=== PATIENT | male | born 1980 | race Caucasian/White ===

== ENCOUNTER 2021-08-25 15:10 | Outpatient (CLI) | payer BC, SELFPAY ==
--- NOTE | ~2021-08-25 | XR_ITS ---
EXAM: XR abdomen/kub 1V DATE: 08/25/2021 15:41 HISTORY: RT FLANK PAIN . COMPARISON: CT abdomen and pelvis, same date. FINDINGS: Clear lung bases. Normal bowel gas pattern. No organomegaly. Stable left nephrolithiasis. Known distal right ureteral calcification is not radiographically visible, likely obscured by osseous anatomy. Regional bones and soft tissues normal for age. IMPRESSION: Known obstructing right distal ureteral calcification not radiographically visible. Stabl e right nephrolithiasis. Reviewed, dictated and finalized at location K. IMPRESSION: Known obstructing right distal ureteral calcification not radiograp hically visible. Stable right nephrolithiasis.
--- NOTE | ~2021-08-25 | CT_ITS ---
EXAMINATION: CT abdomen pelvis wo con DATE: 08/25/2021 15:33 INDICATION: RT FLANK PAIN TECHNIQUE: Computed tomography (CT) of the abdomen and pelvis was performed without intravenous contr ast. Automated exposure control and iterative reconstruction technique were employed. The dose-length product was 685.25 mGy-cm. COMPARISON: 10/07/2018. FINDINGS: Lower thorax: Unremarkable Liver: Normal. Biliary/Gallbladder: Gallbladder is normal. No bile duct dilation. Pancreas: No mass or duct dilation. Spleen: Normal. Adrenals:No mass. Kidneys: Moderate right hydronephrosis and perinephric stranding. Nonobstructive left renal calculi. GI tract: No small or large bowel dilation. Normal appendix. Mesentery/Peritoneum: No ascites, mass, or free air. Retroperitoneum: No mass. Pelvis: 3 x 7 mm right distal ureteral calcification. 2 x 4 mm dependent bladder calcification. Soft Tissues: Bilateral fat-containing inguinal hernias, soft tissues otherwise unremarkable. Bones: No acute osseous finding. IMPRESSION: 3 x 7 mm distal right ureteral stone causing moderate obstructive uropathy. 2 x 4 mm bladder calcific ation may represent a recently passed stone. Reviewed, dictated and finalized at location K. IMPRESSION: 3 x 7 mm distal right ureteral stone causing moderate obstructive uropathy. 2 x 4 mm bladder calcification may represent a recently passed stone.
== END 2021-08-25 15:11 | disposition home or self-care (01) ==
PROVIDERS: Visit Provider Nurse Practitioner Family
DX: R10.9 Unspecified abdominal pain (principal); N20.1 Calculus of ureter
CPT/HCPCS: 74018; 74176

== ENCOUNTER 2021-08-27 02:37 | Day surgery (SDC) | payer BC, SELFPAY ==
[2021-08-26 09:27] VITALS: BMI 28.7
--- NOTE | 2021-08-26 09:35 | PC.NURSE ---
Report to the Outpatient Waiting Room, entrance under the green pavilion located off [facility], at time 1000 on date 08/27/21. OR Time: 1200. - You and your visitor will be asked a series of questions to screen for COVID 19 for your protection. - Only one visitor is allowed at this time. - The patient visitor is requested to leave or wait in car when not with patient. - A mask is required within the hospital. Patients may have clear liquids (water, carbonated beverages, clear teas, apple juice) until 3 hours prior to surgery with a maximum of 20 ounces. - No food from midnight until time of surgery Take the following medications with a SIP of water the morning of surgery: ALL RX'D Medications to discontinue per physician: N/A Date to take last dose: N/A Please no make-up, nail faroese, hairspray, perfume, deodorant, or body powder the day of surgery. No jewelry (including any body piercings) or valuables the day of surgery, leave them at home. Please take a shower or bath the night before, or the morning of, surgery with an antibacterial soap. Wear comfortable, loose fitting clothing. - Jewelry must be removed prior to entering the operating room. Rings and piercings that are not removed may be cut off. - The hospital will not accept responsibility for valuables. - Please leave all valuables, including medications, at home the day of surgery. If you are going home after surgery, a licensed tour driver must drive you home. - NO public transportation without another adult. - We recommend that an adult stay with you for 24 hours following discharge. - We also recommend that you do not drive, make important decision, drink alcoholic beverages, or take any drugs that were not prescribed by your health care provider for at least 24 hours after your discharge time. Follow any additional instructions given to you from your surgeon. If you or anyone in your household have experienced Covid symptoms in the past week, please notify your surgeon or the nurse liaison at the phone number below for possible testing. Telephone instructions given to PT - IBRAHIMA HERNÁNDEZ and asked if any additional questions and then verbalized understanding. Patient advised to call surgeon office or pre surgery nurse liaison [phone] if any additional questions.
[2021-08-27] VITALS (7 sets, daily range): BP systolic 93–131; BP diastolic 55–81; PULSE 63–87; RESP 12–20; TEMP 36.3–37.1; O2SAT 99–100
--- NOTE | ~2021-08-27 | XR_ITS ---
EXAMINATION: XR retrograde pyelo w/stent RT DATE: 08/27/2021 12:31 INDICATION: Right internal ureteral stent placement TECHNIQUE: Fluoroscopic images from a right internal ureteral stent placement are submitted for nathaniel hurst 16 seconds of fluoroscopy time. FINDINGS: There is a right double-J internal ureteral stent projecting in expected position, with proximal [place] loop at the level of the renal pelvis and distal loop in the pelvis within the bladder lumen. IMPRESSION: 1. Right internal ureteral stent placement. Please refer to real-time procedural findings for mary lou ls. Reviewed, dictated and finalized at location B. IMPRESSION: 1. Right internal ureteral stent placement. Please refer to real-time procedu ral findings for details.
--- NOTE | ~2021-08-27 | CT_ITS ---
EXAMINATION: CT abdomen pelvis wo con DATE: 08/27/2021 11:15 INDICATION: Right flank pain. Evaluate kidney stones. TECHNIQUE: Computed tomography (CT) of the abdomen and pelvis was performed without intravenous contr ast. The dose-length product was 300.04 mGy-cm. Automated exposure control and iterative reconstructi on technique were employed. COMPARISON: CT dated 08/25/2021 FINDINGS: Heart size normal. No significant pleural or pericardial effusion. The liver, spleen, pancr eas, adrenal glands are unremarkable. Gallbladder is present. There are nonobstructing left renal sto karine. There has been inferior migration of no abnormal pelvic masses or fluid collections. 5 mm distal right ureteral stone with moderate hydroureteronephrosis. There is perinephric and periureteral sumit a. Bladder is decompressed. Nonobstructive bowel gas pattern. Moderate colonic fecal loading. No free air or free fluid. The bladder stones seen on prior examination not seen on current study, likely guerrier ving been passed in the interim. There is osteoarthritis of the hips. IMPRESSION: 1. Inferior migration of distal right ureteral stone with persistent moderate right hydroureteronephr osis. Reviewed, dictated and finalized at location B. IMPRESSION: 1. Inferior migration of distal right ureteral stone with persistent moderate r ight hydroureteronephrosis.
--- NOTE | 2021-08-27 10:05 | ECG_ITS ---
Measurements Intervals [place] Rate: 84 P: 69 MN: 152 QRS: 55 QRSD: 77 T: 51 QT: 367 QTc: 436 Interpretive Statements SINUS RHYTHM NO PREVIOUS ECG AVAILABLE FOR COMPARISON Electronically Signed On 08-27-2021 20:34:48 CDT by Elda Prather M.D.
--- NOTE | 2021-08-27 10:18 | WPDANESEPPF ---
Anes - Initial Pre Proc Eval Procedure: Operation Date: 08/27/21 12:00 Proposed Procedures p Cystoscopy, Right Ureteroscopy, Stone Extraction, Possible Right Stent Placement, Possible Holmium Laser Lithotripsy with Bladder Stone Extraction - Hector Sexton MD Date/Time: 08/27/21 10:18 Surgeon: Hector Sexton MD Pre Op Diagnosis: right ureteral Stone , Bladder Stone Patient Data Age: 41 Gender: M Height: 1.78 m Weight: 90.72 kg Allergies Allergy/AdvReac Type Severity Reaction Status Date / Time Sulfa (Sulfonamide Allergy Unknown HIVES Verified 08/26/21 09:22 Antibiotics) Home Medications Medication Instructions Recorded Confirmed Type bupropion HCl 200 mg tablet,12 hr 200 mg PO BID 08/26/21 08/26/21 History sustained-release ciprofloxacin HCl 500 mg tablet 1 tablet PO BID 08/26/21 08/26/21 History duloxetine 60 mg capsule,delayed 60 mg PO DAILY 08/26/21 08/26/21 History release hydrocodone 5 mg-acetaminophen 325 1 tablet PO Q6H PRN Pain 08/26/21 08/26/21 History mg tablet lamotrigine 200 mg tablet 200 mg PO BID 08/26/21 08/26/21 History lorazepam 0.5 mg tablet 0.5 mg PO TID PRN Anxiety 08/26/21 08/26/21 History propranolol 120 mg capsule,24 120 mg PO DAILY 08/26/21 08/26/21 History hr,extended release quetiapine 50 mg tablet 50 mg PO TID 08/26/21 08/26/21 History tamsulosin 0.4 mg capsule 1 cap PO DAILY 08/26/21 08/26/21 History Patient hx anesthesia problems: none Family hx anesthesia problems: none Results Review: All pre-operative results and documents have been reviewed as part of the pre-operative evaluation. [facility] Past Medical History Medical History (Updated 08/27/21 @ 10:18 by Marino Akers MD) Anxiety Depression HTN (hypertension) KATHLEEN (obstructive sleep apnea) Social History Social History Smoking status: Never smoker Alcohol intake: never Substance use: never Substance use type: does not use Living arrangements: alone Spiritual care concerns: No Anes - Eval Final PreProcedure Day of Procedure 06/09/22 10:18 Patient weight: overweight Heart: regular rate and rhythm Lungs: clear to auscultation and normal air movement Airway: Mallampati scale class II Neurological: alert and oriented Last oral intake: >/= 8 hours ASA classification: II Emergent: no Anesthetic plan: proceed Anesthesia type and monitoring: general LMA Results Review: All pre-operative results and documents have been reviewed as part of the pre-operative evaluation. Informed Consent: The patient's anesthetic plan and its attendant risks and benefits were discussed with the patient/family/POA. Questions were solicited and answers provided to the satisfaction of the patient/family/POA.
[2021-08-27] MEDS: LACTATED RINGERS 1,000 ML 30 ML IV CONT (10:46)
--- NOTE | 2021-08-27 11:39 | WPDHPUPDATE1 ---
History and Physical Update Update Date/Time: 08/27/21 11:39 History and Physical has been reviewed, including an updated exam of the patient. There are NO changes in the patient's condition. Risks, benefits, and alternatives have been discussed and questions answered. Patient agrees to proceed with procedure. Proceed with cystoscopy, right retrograde, right ureteroscopy with stone extraction, laser, stent.
[2021-08-27] MEDS: ceFAZolin 2 GM/D5W 50 ML 2 GM/50 ML BAG IVPB (11:44)
[2021-08-27] MEDS: LIDOCAINE HCL 2% GEL UROJET 10 ML PKG MUCOUS MEM (12:10)
--- NOTE | 2021-08-27 12:40 | W.PM.PROC2 ---
Procedure Note - Detailed Date of Procedure 08/27/21 Pre-op Diagnosis right ureteral Stone Post-op Diagnosis Same Procedure Performed Cystoscopy, right retrograde pyelogram, right ureteroscopy with holmium laser, stone extraction, right ureteral stent placement 4.8 Mongolian contour Surgeon Hector Sexton MD Anesthesia General Description of Procedure Patient is taken to the operative suite correctly identified. Once anesthesia was obtained was placed in dorsal lithotomy position and prepped draped usual sterile fashion. Nineteen Mongolian scope was inserted in the bladder. There were no tumors noted. Right ureteral orifice was cannulated with a guidewire. We dilated with an 8/10 dilator. Rigid ureteral scope was then inserted. There were 2 stones noted. They were too large to retrieve 1 piece. Using a 272 micron fiber we lasered the stone into multiple small little tiny fragments. These were then evacuated into the bladder. Some of these were sent for analysis. Reinspection revealed no residual stone. Pyelogram was then performed confirm placement the stent. A 4.8 Mongolian contour stent was then placed with the proximal end coiled in the renal pelvis and the distal end in the bladder. Bladder was drained. 2% viscous lidocaine was inserted urethra patient taken recovery stable condition. He will follow up in a week's time for stent removal. Estimated Blood Loss 0 Drains Yes Packing No Pathology Yes Complications No immediate complications Condition Stable Disposition PACU
[2021-08-27] MEDS: ONDANSETRON INJ 4 MG/2 ML VIAL IV PUSH (12:57)
== END 2021-08-27 14:09 | disposition home or self-care (01) ==
PROVIDERS: Visit Provider Urology
PROC: (CPT 52352; principal; 2021-08-27 12:00)
DX: N13.2 Hydronephrosis with renal and ureteral calculous obstruction (principal); I10 Essential (primary) hypertension; G47.33 Obstructive sleep apnea (adult) (pediatric); F41.8 Other specified anxiety disorders
CPT/HCPCS: 52356; 74176; 74420; 82365; 88300; 93005; A9270; C1769; C2617; J0690; J1100; J2250; J2405; J2704; J3010; J7120

== ENCOUNTER 2022-09-30 08:45 | Outpatient (CLI) | payer BC, SELFPAY ==
--- NOTE | ~2022-09-30 | CT_ITS ---
CT of the Abdomen and Pelvis: Indication: Left flank pain Technique: 2.5 mm axial scans were obtained through the abdomen and pelvis following intravenous adm inistration of 100 cc of Omnipaque 350. Dose reduction technique was used on this scan by utilizing a utomated exposure control and iterative reconstruction technique. The dose-length product (DLP) was 6 61.75 mGy-cm. COMPARISON: 08/27/2021 Findings: Scans through the lung bases are unremarkable. The liver, spleen, pancreas, gallbladder, adrenals and right kidney are within normal limits. There i s a 1.0 x 0.8 cm left renal stone. Additional 2 mm nonobstructing left lower pole renal stone present . No evidence of aortic aneurysm. No lymphadenopathy. No bowel obstruction or bowel wall thickening. There is no evidence to suggest acute appendicitis. Images through the pelvis were performed. Urinary bladder unremarkable. Prostate gland and seminal ve sicles are unremarkable. Impression: Left nephrolithiasis, as detailed above. Reviewed, dictated and finalized at location . Impression: Left nephrolithiasis, as detailed above.
--- NOTE | ~2022-09-30 | XR_ITS ---
EXAMINATION: XR abdomen/kub 1V INDICATION: Left flank pain TECHNIQUE: Supine views of the abdomen were obtained on 2 radiographs. COMPARISON: 08/25/2021 FINDINGS: No definite urolithiasis is identified. There are phleboliths of the pelvis. The visualized lung bases are clear. The bowel gas pattern is normal. IMPRESSION: 1. No definite urolithiasis identified. Reviewed, dictated and finalized at location L.
[2022-09-30 11:17] LABS: Estimated Glomerular Filt Rate 52
== END 2022-09-30 08:46 | disposition home or self-care (01) ==
PROVIDERS: Visit Provider Urology
DX: N20.0 Calculus of kidney (principal)
CPT/HCPCS: 74018; 74177; Q9967

== ENCOUNTER 2022-10-05 14:07 | Outpatient (CLI) | payer BC, SELFPAY ==
--- NOTE | ~2022-10-05 | XR_ITS ---
EXAMINATION: XR abdomen/kub 1V DATE: 10/05/2022 14:28 INDICATION: Left kidney stone. TECHNIQUE: A supine view of the abdomen on 2 radiographs was obtained. COMPARISON: CT abdomen and pelvis 09/30/2022 FINDINGS: There are no dilated loops of bowel. There is a 9 x 15 mm stone in left kidney. There is a 2 mm stone in left kidney. There are phleboliths in right pelvis. IMPRESSION: 1. Left kidney stones. Reviewed, dictated and finalized at location A. IMPRESSION: 1. Left kidney stones.
== END 2022-10-05 14:08 | disposition home or self-care (01) ==
LOC: ANHIMG 14:16
PROVIDERS: Visit Provider Urology
DX: N20.0 Calculus of kidney (principal)
CPT/HCPCS: 74018

== ENCOUNTER 2022-10-29 01:56 | Day surgery (SDC) | payer BC, SELFPAY ==
[2022-10-26 17:01] VITALS: BMI 29.9
--- NOTE | 2022-10-26 17:10 | PC.NURSE ---
Report to the Outpatient Waiting Room, entrance under the green pavilion located off [facility], at time 0630 on date 10/29/22. Planned Procedure Time: 0830. Time changes happen often and if your time is changed the preop area will call you the afternoon before. - You and your visitor will be asked to self-screen and do not enter if you have any COVID symptoms. - A mask is optional within the hospital at this time. Patients may have clear liquids (water, carbonated beverages, clear teas, apple juice) until 3 hours prior to surgery with a maximum of 20 ounces. 0530 - No food from midnight until time of surgery - Infants may have breast milk until 4 hours before surgery, formula 6 hours prior to surgery. - Children will be allowed to drink immediately following surgery. If applicable, please bring a bottle or sippy cup to assist with drinking. Juice, water, soda, and popsicles are readily available. For infants on formula, please bring formula the day of surgery. Pacifiers are allowed. Take the following medications with a SIP of water the morning of surgery: bupropion, duloxetine, lamotrigine, lorazepam, propranolol, quetiapine DO NOT STOP ANY OF YOUR OTHER PRESCRIPTION MEDICATIONS PRIOR TO SURGERY ?EXCEPT THE FOLLOWING Medications to discontinue per physician N/A Date to take last dose N/A Please no make-up, nail russian, hairspray, perfume, deodorant, or body powder the day of surgery. No jewelry (including any body piercings) or valuables the day of surgery, leave them at home. Please take a shower or bath the night before, or the morning of, surgery with an antibacterial soap. Wear comfortable, loose fitting clothing. Children are encouraged to wear pajamas. - Jewelry must be removed prior to entering the operating room. Rings and piercings that are not removed may be cut off. - The hospital will not accept responsibility for valuables. - Please leave all valuables, including medications, at home the day of surgery. If you are going home after surgery, a licensed auto crane driver must drive you home. - NO public transportation without another adult if you receive anesthesia. - We recommend that an adult stay with you for 24 hours following discharge. - We also recommend that you do not drive, make important decision, drink alcoholic beverages, or take any drugs that were not prescribed by your health care provider for at least 24 hours after your discharge time. For Pediatric surgeries, we recommend two adults accompany the child home. Follow any additional instructions given to you from your surgeon. If you or anyone in your household have experienced Covid symptoms in the past week, please notify your surgeon or the nurse liaison at the phone number below for possible testing. Telephone instructions given to Patient- Dat Pichardo and asked if any additional questions and then verbalized understanding. Patient advised to call surgeon office or pre surgery nurse liaison [phone] if any additional questions.
[2022-10-29] VITALS (13 sets, daily range): BP systolic 115–167; BP diastolic 59–95; PULSE 72–124; RESP 12–18; TEMP 36.1–36.6; O2SAT 97–100; BMI 29.0
--- NOTE | ~2022-10-29 | XR_ITS ---
Supine and upright views of the abdomen Clinical history: Lithotripsy COMPARISON: 10/05/2022 Findings: Bowel gas pattern is nonspecific. No evidence for obstruction or free air. Amorphous left r enal stone measures approximately 16 mm in maximum diameter. Osseous structures are intact. Impression: 16 mm left renal stone, as detailed above. Reviewed, dictated and finalized at location . Impression: 16 mm left renal stone, as detailed above.
--- NOTE | 2022-10-29 06:00 | ECG_ITS ---
Measurements Intervals [place] Rate: 86 P: 53 [place]: 145 QRS: 20 QRSD: 90 T: 37 QT: 372 QTc: 447 Interpretive Statements SINUS RHYTHM POSSIBLE LEFT ATRIAL ENLARGEMENT [-0.1mV P WAVE IN V1/V2] COMPARED TO ECG 08/27/2021 10:20:23 NO SIGNIFICANT CHANGES Electronically Signed On 10-29-2022 9:01:17 CDT by Daphne Handley M.D.
[2022-10-29] MEDS: LACTATED RINGERS 1,000 ML 30 ML IV CONT (07:15)
[2022-10-29 07:33] LABS: Prothrombin Time 13.6 Seconds (11.1-14.7)
[2022-10-29 07:34] LABS: Partial Thromboplastin Time 29.1 SECONDS (22.3-36.8)
--- NOTE | 2022-10-29 07:39 | WPDHPUPDATE1 ---
History and Physical Update Update Date/Time: 10/29/22 07:39 History and Physical has been reviewed, including an updated exam of the patient. There are NO changes in the patient's condition. Risks, benefits, and alternatives have been discussed and questions answered. Patient agrees to proceed with procedure. Proceed with cystoscopy, left retrograde, left stent placement, left renal eswl
[2022-10-29] MEDS: SCOPOLAMINE 1.5 MG PATCH TRANSDERM (07:40)
--- NOTE | 2022-10-29 07:41 | P.PNAN_ITS ---
Anes - Initial Pre Proc Eval Procedure: Operation Date: 10/29/22 08:30 Proposed Procedures p Cystoscopy, Left Retrograde Pyelogram, Possible Left Stent Placement, - Hector Sexton MD s Left Renal Extracorporeal Shock Wave Lithotripsy - Hector Sexton MD Date/Time: 10/29/22 07:41 Surgeon: Hector Sexton MD Pre Op Diagnosis: left renal kidney stone Patient Data Age: 42 Gender: M Height: 1.78 m Weight: 92 kg Allergies Allergy/AdvReac Type Severity Reaction Status Date / Time Sulfa (Sulfonamide Allergy Unknown HIVES Verified 10/29/22 07:20 Antibiotics) Home Medications Medication Instructions Recorded Confirmed Type bupropion HCl 200 mg tablet,12 hr 200 mg PO BID 08/26/21 10/26/22 History sustained-release duloxetine 60 mg capsule,delayed 60 mg PO DAILY 08/26/21 10/26/22 History release lamotrigine 200 mg tablet 200 mg PO BID 08/26/21 10/26/22 History lorazepam 0.5 mg tablet 0.5 mg PO TID PRN Anxiety 08/26/21 10/29/22 History propranolol 120 mg capsule,24 120 mg PO DAILY 08/26/21 10/26/22 History hr,extended release quetiapine 50 mg tablet 150 mg PO HS 08/26/21 10/26/22 History Laboratory Tests 10/29/22 07:05 PT 13.6 Seconds (11.1-14.7) INR 1.0 APTT 29.1 SECONDS (22.3-36.8) Patient hx anesthesia problems: none Family hx anesthesia problems: none Results Review: All pre-operative results and documents have been reviewed as part of the pre- operative evaluation. [facility] Past Medical History Medical History Anxiety Depression HTN (hypertension) KATHLEEN (obstructive sleep apnea) Social History Social History Smoking status: Never smoker Alcohol intake: never Substance use: never Substance use type: does not use Living arrangements: alone Spiritual care concerns: No Anes - Eval Final PreProcedure Day of Procedure 10/29/22 07:41 Patient weight: overweight Heart: regular rate and rhythm Lungs: clear to auscultation Airway: Mallampati scale class II Neurological: alert and oriented Last oral intake: >/= 8 hours ASA classification: III Emergent: no Anesthetic plan: proceed Anesthesia type and monitoring: general LMA and standard monitoring Results Review: All pre-operative results and documents have been reviewed as part of the pre- operative evaluation. Informed Consent: The patient's anesthetic plan and its attendant risks and benefits were discussed with the patient/family/POA. Questions were solicited and answers provided to the satisfaction of the patient/family/POA.
[2022-10-29 08:20] LABS: Appearance Urine Clear (Clear); Bacteria Urine None Seen /hpf; Bilirubin Urine Negative (Negative); Blood Urine 2+ (Negative); Color Urine Yellow (Yellow); Glucose Urine UA Negative (Negative); Ketones Urine Trace mg/dL (Negative); Leukocyte Esterase Ur Trace LEU/UL (Negative); Nitrate Urine Negative (Negative); Non Pathogenic Casts 0-2; Protein Urine 2+ mg/dL (Negative); RBC Urine 51-100 /hpf (0-2); Specific Grav Ur 1.021 (1.001-1.035); Squamous Epithelial Cell Urine None seen /hpf (Few); WBC Urine 0-5 /hpf; pH Urine 6.5 (5.0-9.0)
[2022-10-29 08:29] LABS: Add Urine Microscopic? YES
[2022-10-29] MEDS: ceFAZolin 2 GM/D5W 50 ML 2 GM/50 ML BAG IVPB (08:30)
[2022-10-29] MEDS: LIDOCAINE HCL 2% GEL UROJET 10 ML PKG MUCOUS MEM (08:46)
--- NOTE | 2022-10-29 09:16 | W.PM.PROC2 ---
Procedure Note - Detailed Date of Procedure 10/29/22 Pre-op Diagnosis left renal kidney stone Post-op Diagnosis Same Procedure Performed Cystoscopy, left ureteral stent placement 4.8 Tunisian contour stent, lithotripsy of left renal calculus Surgeon Hector Sexton MD Anesthesia General Description of Procedure Patient is taken to the operative suite and correctly identified. Once anesthesia was obtained he was prepped and draped usual sterile fashion. A 16 Tunisian flexible scope was inserted in the meatus. There are no urethral strictures. Prostate is nonobstructive. The bladder itself has no tumors. Left ureteral orifice was cannulated with a guidewire. Report 0.8 Tunisian contour stent was then placed with the proximal end in the renal pelvis distal in the bladder. 2% viscous lidocaine was inserted into the urethra. Patient was then repositioned. The left renal stone was visualized. Two thousand five hundred shocks were given to the stone. Patient tolerated procedure well without any complications and was taken recovery stable condition. A follow-up in 7-10 days with a KUB. This completes dictation. Please send a copy of this op note to my office Estimated Blood Loss 0 Drains Yes Packing No Pathology None sent Complications No immediate complications Condition Stable Disposition PACU
[2022-10-29] MEDS: ONDANSETRON INJ 4 MG/2 ML VIAL IV PUSH (10:10)
[2022-10-29] MEDS: LABETALOL HCL INJ 100 MG/20 ML VIAL IV PUSH (10:22)
--- NOTE | 2022-10-29 11:59 | SUR.PHASEII ---
PATIENT URINATED INTO SIEVE AND NOTICED A TINY CLEAR-WHITE TUBE WITH A TINY PIECE OF MUCOUS/TISSUE ATTACHED TO ONE END OF IT IN THE SIEVE. TUBE PLACED IN A STERILE CUP. DR. AGUSTIN AWARE AND WILL LOOK AT IT AND OKAY'D FOR PATIENT TO GO HOME.
--- NOTE | 2022-10-29 12:30 | SUR.PHASEII ---
DR. AGUSTIN LOOKED AT THE TINY TUBE; HE SAID IT'S NOT THE STENT AND TO TELL THE PATIENT NOT TO WORRY ABOUT IT. I CALLED THE PATIENT TO RELAY THIS MESSAGE.
== END 2022-10-29 12:10 | disposition home or self-care (01) ==
PROVIDERS: Visit Provider Urology
PROC: (CPT 52352; principal; 2022-10-29 08:30)
PROC: (CPT 50590; 2022-10-29 08:30)
DX: N20.0 Calculus of kidney (principal); I10 Essential (primary) hypertension; G47.33 Obstructive sleep apnea (adult) (pediatric); F41.9 Anxiety disorder, unspecified; F32.A Depression, unspecified
CPT/HCPCS: 52332; 50590; 36415; 74018; 81001; 85610; 85730; 87086; 93005; A9270; C1769; C2617; J0690; J1100; J2250; J2405; J2704; J3010; J7120

== ENCOUNTER 2022-11-11 11:49 | Outpatient (CLI) | payer BC, SELFPAY ==
--- NOTE | ~2022-11-11 | XR_ITS ---
XR abdomen/kub 1V 11/11/2022 12:02 Indication: Renal stone Procedure: KUB Comparison: 10/29/2022 Findings: There are left renal stones. There is left internal ureteral stent in expected position. Gustavo wel gas pattern nonobstructive. No acute osseous abnormality. Impression: 1: Left nephrolithiasis. Reviewed, dictated and finalized at location L. Impression: 1: Left nephrolithiasis.
== END 2022-11-11 11:50 | disposition home or self-care (01) ==
LOC: ANHIMG 11:52
PROVIDERS: Visit Provider Urology
DX: N20.0 Calculus of kidney (principal)
CPT/HCPCS: 74018

== ENCOUNTER 2022-11-23 17:15 | Outpatient (CLI) | payer BC, SELFPAY ==
--- NOTE | ~2022-11-23 | XR_ITS ---
EXAM: XR abdomen/kub 1V DATE: 11/23/2022 17:26 HISTORY: left sided kidney stone . COMPARISON: 11/11/2022. FINDINGS: Clear lung bases. Left ureteral stent, in good position. Normal bowel gas pattern. No orga nomegaly. Left inferior pole renal calcifications, unchanged. Regional bones and soft tissues normal for age. IMPRESSION: Stable left nephrolithiasis. Reviewed, dictated and finalized at location K.
== END 2022-11-23 17:16 | disposition home or self-care (01) ==
LOC: ANHIMG 17:17
PROVIDERS: Visit Provider Urology
DX: N20.0 Calculus of kidney (principal)
CPT/HCPCS: 74018

== ENCOUNTER 2022-12-14 17:11 | Outpatient (CLI) | payer BC, SELFPAY ==
[2022-12-14 18:11] LABS: Prothrombin Time 13.2 Seconds (11.1-14.7)
[2022-12-14 18:12] LABS: Partial Thromboplastin Time 31.4 SECONDS (22.3-36.8)
== END 2022-12-14 17:12 | disposition home or self-care (01) ==
LOC: ANHLAB 17:12
PROVIDERS: Visit Provider Urology
DX: Z01.818 Encounter for other preprocedural examination (principal); N20.0 Calculus of kidney
CPT/HCPCS: 36415; 85610; 85730; 87086

== ENCOUNTER 2022-12-17 00:49 | Day surgery (SDC) | payer BC, SELFPAY ==
[2022-12-08 14:06] VITALS: BMI 28.4
--- NOTE | 2022-12-08 14:11 | PC.NURSE ---
Report to the Outpatient Waiting Room, entrance under the green pavilion located off [facility], at time _0730 on date 12/17/22. Planned Procedure Time: _929__. Time changes happen often and if your time is changed the preop area will call you the afternoon before. - You and your visitor will be asked to self-screen and do not enter if you have any COVID symptoms. - A mask is optional within the hospital at this time. Patients may have clear liquids (water, carbonated beverages, clear teas, apple juice) until 3 hours prior to surgery with a maximum of 20 ounces. - No food from midnight until time of surgery - Infants may have breast milk until 4 hours before surgery, formula 6 hours prior to surgery. - Children will be allowed to drink immediately following surgery. If applicable, please bring a bottle or sippy cup to assist with drinking. Juice, water, soda, and popsicles are readily available. For infants on formula, please bring formula the day of surgery. Pacifiers are allowed. Take the following medications with a SIP of water the morning of surgery: _BUPROPION, DULOXETINE, LAMOTRIGINE, PROPANOLOL, LORAZEPAM IF NEEDED DO NOT STOP ANY OF YOUR OTHER PRESCRIPTION MEDICATIONS PRIOR TO SURGERY ?EXCEPT THE FOLLOWING Medications to discontinue per physician Date to take last dose Please no make-up, nail colombian, hairspray, perfume, deodorant, or body powder the day of surgery. No jewelry (including any body piercings) or valuables the day of surgery, leave them at home. Please take a shower or bath the night before, or the morning of, surgery with an antibacterial soap. Wear comfortable, loose fitting clothing. Children are encouraged to wear pajamas. - Jewelry must be removed prior to entering the operating room. Rings and piercings that are not removed may be cut off. - The hospital will not accept responsibility for valuables. - Please leave all valuables, including medications, at home the day of surgery. If you are going home after surgery, a licensed catshovel driver must drive you home. - NO public transportation without another adult if you receive anesthesia. - We recommend that an adult stay with you for 24 hours following discharge. - We also recommend that you do not drive, make important decision, drink alcoholic beverages, or take any drugs that were not prescribed by your health care provider for at least 24 hours after your discharge time. For Pediatric surgeries, we recommend two adults accompany the child home. Follow any additional instructions given to you from your surgeon. If you or anyone in your household have experienced Covid symptoms in the past week, please notify your surgeon or the nurse liaison at the phone number below for possible testing. Telephone instructions given to _PATIENT___and asked if any additional questions and then verbalized understanding. Patient advised to call surgeon office or pre surgery nurse liaison [phone] if any additional questions.
[2022-12-17] VITALS (10 sets, daily range): BP systolic 121–142; BP diastolic 74–103; PULSE 64–88; RESP 14–20; TEMP 36.6–36.8; O2SAT 98–100; BMI 29.5
--- NOTE | ~2022-12-17 | XR_ITS ---
EXAMINATION: XR abdomen/kub 1V DATE: 12/17/2022 08:06 INDICATION: Kidney stone. TECHNIQUE: A supine view of the abdomen on 2 radiographs was obtained. COMPARISON: Abdomen radiographs 11/23/2022, CT abdomen and pelvis 09/30/2022 FINDINGS: There are no dilated loops of bowel. There are phleboliths in the pelvis. There is a left i nternal ureteral stent in expected position. There are 2 mm and 3 mm stones in proximal left ureter. IMPRESSION: 1. 2 mm and 3 mm stones in proximal left ureter with left internal ureteral stent in expected positio n. Reviewed, dictated and finalized at location E. IMPRESSION: 1. 2 mm and 3 mm stones in proximal left ureter with left internal ureteral yue nt in expected position.
--- NOTE | 2022-12-17 08:47 | P.PNAN_ITS ---
Anes - Initial Pre Proc Eval Procedure: Operation Date: 12/17/22 09:30 Proposed Procedures p Left Renal Extracorporeal Shock Wave Lithotripsy - Hector Sexton MD Date/Time: 12/17/22 08:47 Surgeon: Hector Sexton MD Pre Op Diagnosis: left renal stone Patient Data Age: 42 Gender: M Height: 1.78 m Weight: 90 kg Allergies Allergy/AdvReac Type Severity Reaction Status Date / Time Sulfa (Sulfonamide Allergy Unknown HIVES Verified 10/29/22 07:20 Antibiotics) Home Medications Medication Instructions Recorded Confirmed Type bupropion HCl 200 mg tablet,12 hr 200 mg PO BID 08/26/21 12/08/22 History sustained-release duloxetine 60 mg capsule,delayed 60 mg PO DAILY 08/26/21 12/08/22 History release lamotrigine 200 mg tablet 200 mg PO BID 08/26/21 12/08/22 History lorazepam 0.5 mg tablet 0.5 mg PO TID PRN Anxiety 08/26/21 12/08/22 History propranolol 120 mg capsule,24 120 mg PO DAILY 08/26/21 12/08/22 History hr,extended release quetiapine 50 mg tablet 150 mg PO HS 08/26/21 12/08/22 History Patient hx anesthesia problems: none Family hx anesthesia problems: none Results Review: All pre-operative results and documents have been reviewed as part of the pre- operative evaluation. [facility] Past Medical History Medical History Anxiety Depression HTN (hypertension) KATHLEEN (obstructive sleep apnea) Social History Social History Smoking status: Never smoker Alcohol intake: never Substance use: never Substance use type: does not use Living arrangements: alone Spiritual care concerns: No Anes - Eval Final PreProcedure Day of Procedure 12/17/22 08:47 Patient weight: overweight Heart: regular rate and rhythm Lungs: clear to auscultation Airway: Mallampati scale class II Neurological: alert and oriented Last oral intake: >/= 8 hours ASA classification: III Emergent: no Anesthetic plan: proceed Anesthesia type and monitoring: general LMA and standard monitoring Results Review: All pre-operative results and documents have been reviewed as part of the pre- operative evaluation. Informed Consent: The patient's anesthetic plan and its attendant risks and benefits were discussed with the patient/family/POA. Questions were solicited and answers provided to the satisfaction of the patient/family/POA.
[2022-12-17] MEDS: LACTATED RINGERS 1,000 ML 30 ML IV CONT (09:00)
--- NOTE | 2022-12-17 09:18 | WPDHPUPDATE1 ---
History and Physical Update Update Date/Time: 12/17/22 09:18 History and Physical has been reviewed, including an updated exam of the patient. There are NO changes in the patient's condition. Risks, benefits, and alternatives have been discussed and questions answered. Patient agrees to proceed with procedure. Proceed with left renal/ureteral lithotripsy
[2022-12-17] MEDS: ceFAZolin 2 GM/D5W 50 ML 2 GM/50 ML BAG IVPB (09:32)
--- NOTE | 2022-12-17 10:12 | W.PM.PROC2 ---
Procedure Note - Detailed Date of Procedure 12/17/22 Pre-op Diagnosis left ureteral stone Post-op Diagnosis Same Procedure Performed Lithotripsy of left ureteral calculus Surgeon Hector Sexton MD Anesthesia General Description of Procedure Patient was taken to the operative suite correctly identified. Once anesthesia was obtained the stones were localized in both planes. He had a bit of a Steinstrasse in the proximal ureter. Three thousand shocks were given to this location. Patient tolerated procedure well without any complications and was taken recovery stable condition. He will follow-up in 7-10 days with KUB with possible removal of the stent at that time. This completes dictation on this patient. Please send a copy of this note to my office Estimated Blood Loss 0 Drains Yes Packing No Pathology None sent Complications No immediate complications Condition Stable Disposition PACU
[2022-12-17] MEDS: ONDANSETRON INJ 4 MG/2 ML VIAL IV PUSH (10:40)
== END 2022-12-17 12:05 | disposition home or self-care (01) ==
PROVIDERS: Visit Provider Urology
PROC: (CPT 50590; principal; 2022-12-17 09:30)
DX: N20.1 Calculus of ureter (principal); F41.9 Anxiety disorder, unspecified; F32.A Depression, unspecified; I10 Essential (primary) hypertension; G47.33 Obstructive sleep apnea (adult) (pediatric); Z87.442 Personal history of urinary calculi; Z96.0 Presence of urogenital implants
CPT/HCPCS: 50590; 74018; J0690; J1100; J2250; J2405; J2704; J3010; J7120

== ENCOUNTER 2022-12-28 17:17 | Outpatient (CLI) | payer BC, SELFPAY ==
--- NOTE | ~2022-12-28 | XR_ITS ---
EXAMINATION: XR abdomen/kub 1V INDICATION: Calcium kidney stone TECHNIQUE: Supine views of the abdomen were obtained on 2 radiographs. COMPARISON: 12/17/2022 FINDINGS: A left internal ureteral stent is in expected position. There is a 5 mm stone adjacent to t he stent at the level of the left L4 transverse process. No definite additional urolithiasis is ident ified. The visualized lung bases are clear. A moderate volume of colonic stool is present. IMPRESSION: 1. Left internal ureteral stent in expected position with small stone adjacent to the stent at the le stephon of the left L4 transverse process. Reviewed, dictated and finalized at location F. IMPRESSION: 1. Left internal ureteral stent in expected position with small stone adjacent to the stent at the level of the left L4 transverse process.
== END 2022-12-28 17:18 | disposition home or self-care (01) ==
PROVIDERS: Visit Provider Urology
DX: N20.0 Calculus of kidney (principal); Z96.0 Presence of urogenital implants
CPT/HCPCS: 74018

== ENCOUNTER 2023-01-03 12:54 | Outpatient (CLI) | payer BC, SELFPAY ==
--- NOTE | ~2023-01-03 | CT_ITS ---
EXAMINATION: CT abdomen pelvis wo con DATE: 01/03/2023 13:20 INDICATION: Calcium kidney stone. TECHNIQUE: Computed tomography (CT) of the abdomen and pelvis was performed without intravenous contr ast. Automated exposure control and iterative reconstruction technique were employed. The dose-length product was 620.61 mGy-cm. COMPARISON: CT abdomen and pelvis 09/30/2022 FINDINGS: The visualized portions of the lung bases demonstrate minimal atelectasis. No pleural effus ion. The heart size is normal. No pericardial effusion. There is diffuse hepatic steatosis. The gallb ladder, spleen, pancreas, adrenal glands, and right kidney are normal. There is a left internal urete ral stent in expected position. There is a 4 mm stone in left kidney. There is mild left hydronephros is. There is a 2 mm stone in proximal left ureter. There are no dilated loops of bowel. The appendix is normal. There are no pathologically enlarged lymph nodes. There is no free intraperitoneal fluid. There is mild lumbar spondylosis. IMPRESSION: 1. 2 mm stone in proximal left ureter. Left internal ureteral stent in expected position. Mild left h ydronephrosis. 2. 4 mm nonobstructing left kidney stone. Reviewed, dictated and finalized at location E. IMPRESSION: 1. 2 mm stone in proximal left ureter. Left internal ureteral stent in expected position. Mild left hydronephrosis. 2. 4 mm nonobstructing left kidney stone.
--- NOTE | ~2023-01-03 | XR_ITS ---
XR abdomen/kub 1V DATE: 01/03/2023 13:20 INDICATION: Calcium kidney stone TECHNIQUE: 2 AP views COMPARISON: 01/03/2023 CT abdomen pelvis FINDINGS: Left internal urinary stent, proximal pigtail overlying left renal pelvis, distal pigtail o verlying the latter in the midline. Small faint linear opacity overlying the lower pole left kidney likely corresponds to the small nonob structing calculus of the lower pole left kidney documented on 2022 CT abdomen pelvis. One or 2 very small subtle faintly calcified calculi are suggested overlying the left ureter at the L 3-4 level. IMPRESSION: 1 or 2 very small subtle faintly calcified calculi may be present in the left ureter at t he L3-4 level Small very faintly calcified lower pole left renal calculus Left internal urinary stent Reviewed, dictated and finalized at Location A. Reviewed, dictated and finalized at location B. IMPRESSION: 1 or 2 very small subtle faintly calcified calculi may be present i n the left ureter at the L3-4 level Small very faintly calcified lower pole left renal calculus Left internal urinary stent
== END 2023-01-03 12:55 ==
LOC: MICIMG 12:56
PROVIDERS: PCP Urology; Visit Provider Urology
DX: N20.0 Calculus of kidney (principal); N20.1 Calculus of ureter; N13.30 Unspecified hydronephrosis; Z96.0 Presence of urogenital implants
CPT/HCPCS: 74018; 74176

== ENCOUNTER 2023-01-03 15:02 | Outpatient (CLI) | payer BC, SELFPAY | END 2023-01-03 15:03 | disposition home or self-care (01) | PROVIDERS: PCP Urology; Visit Provider Urology | DX: Z01.818 Encounter for other preprocedural examination (principal); N20.0 Calculus of kidney | CPT/HCPCS: 87086 ==

== ENCOUNTER 2023-01-07 00:27 | Day surgery (SDC) | payer BC, SELFPAY ==
[2023-01-03 10:31] VITALS: BMI 28.7
--- NOTE | 2023-01-03 10:49 | SUR.PREOP ---
Report to the Outpatient Waiting Room, entrance under the green pavilion located off [facility], at time 6:00AM on date 01/07/2023. Planned Procedure Time: 7:30AM. Time changes happen often and if your time is changed the preop area will call you the afternoon before. - You and your visitor will be asked to self-screen and do not enter if you have any COVID symptoms. - A mask is optional within the hospital at this time. Patients may have clear liquids (water, carbonated beverages, clear teas, apple juice) until 3 hours prior to surgery with a maximum of 20 ounces- 4:30AM. - No food from midnight until time of surgery - Infants may have breast milk until 4 hours before surgery, infant formula 6 hours prior to surgery. - Children will be allowed to drink immediately following surgery. If applicable, please bring a bottle or sippy cup to assist with drinking. Juice, water, soda, and popsicles are readily available. For infants on formula, please bring formula the day of surgery. Pacifiers are allowed. Take the following medications with a SIP of water the morning of surgery: Propranolol, Ativan as needed, Wellbutrin, Cymbalta, Lamictal DO NOT STOP ANY OF YOUR OTHER PRESCRIPTION MEDICATIONS PRIOR TO SURGERY ?EXCEPT THE FOLLOWING Medications to discontinue per physician Multivitamin- 3 days per anesthesia Date to take last dose: 01/03/2023 Please no make-up, nail french, hairspray, perfume, deodorant, or body powder the day of surgery. No jewelry (including any body piercings) or valuables the day of surgery, leave them at home. Please take a shower or bath the night before, or the morning of, surgery with an antibacterial soap. Wear comfortable, loose fitting clothing. Children are encouraged to wear pajamas. - Jewelry must be removed prior to entering the operating room. Rings and piercings that are not removed may be cut off. - The hospital will not accept responsibility for valuables. - Please leave all valuables, including medications, at home the day of surgery. If you are going home after surgery, a licensed jinrikisha driver must drive you home. - NO public transportation without another adult if you receive anesthesia. - We recommend that an adult stay with you for 24 hours following discharge. - We also recommend that you do not drive, make important decision, drink alcoholic beverages, or take any drugs that were not prescribed by your health care provider for at least 24 hours after your discharge time. For Pediatric surgeries, we recommend two adults accompany the child home. Follow any additional instructions given to you from your surgeon. If you or anyone in your household have experienced Covid symptoms in the past week, please notify your surgeon or the nurse liaison at the phone number below for possible testing. Telephone instructions given to patient- Dat and asked if any additional questions and then verbalized understanding. Patient advised to call surgeon office or pre surgery nurse liaison [phone] if any additional questions.
[2023-01-07] VITALS (10 sets, daily range): BP systolic 117–145; BP diastolic 73–88; PULSE 60–84; RESP 10–16; TEMP 36.2–36.3; O2SAT 99–100
--- NOTE | ~2023-01-07 | XR_ITS ---
EXAMINATION: XR retrograde pyelo w/stent LT DATE: 01/07/2023 09:07 INDICATION: Left internal ureteral stent placement TECHNIQUE: Fluoroscopic images from a left internal ureteral stent placement are submitted for review . 39 seconds of fluoroscopy time. FINDINGS: There is a left double-J internal ureteral stent projecting in expected position, with proximal Drayton loop at the level of the renal pelvis and distal loop in the pelvis within the bladder lumen. IMPRESSION: 1. Left internal ureteral stent placement. Please refer to real-time procedural findings for detail s. Reviewed, dictated and finalized at location A. IMPRESSION: 1. Left internal ureteral stent placement. Please refer to real-time procedur al findings for details.
--- NOTE | 2023-01-07 07:48 | WPDANESEPPF ---
Anes - Initial Pre Proc Eval Procedure: Operation Date: 01/07/23 08:30 Proposed Procedures p Cystosopy, Left Ureteroscopy, Left Retrograde Pyelogram, Possible Left Stone Extraction, Left Stent Exchange, Possible Holmium Laser - Hector Sexton MD Date/Time: 01/07/23 07:48 Surgeon: Hector Sexton MD Pre Op Diagnosis: renal stone Patient Data Age: 42 Gender: M Height: 1.78 m Weight: 90.9 kg Allergies Allergy/AdvReac Type Severity Reaction Status Date / Time Sulfa (Sulfonamide Allergy Unknown HIVES Verified 01/03/23 10:26 Antibiotics) Home Medications Medication Instructions Recorded Confirmed Type bupropion HCl 200 mg tablet,12 hr 200 mg PO BID 08/26/21 01/03/23 History sustained-release duloxetine 60 mg capsule,delayed 60 mg PO DAILY 08/26/21 01/03/23 History release lamotrigine 200 mg tablet 200 mg PO BID 08/26/21 01/03/23 History lorazepam 0.5 mg tablet 0.5 mg PO TID PRN Anxiety 08/26/21 01/03/23 History propranolol 120 mg capsule,24 120 mg PO DAILY 08/26/21 01/03/23 History hr,extended release quetiapine 50 mg tablet 150 mg PO HS 08/26/21 01/03/23 History Adult One Daily Multivitamin See Rx Instructions .Route .COMPLEX 01/03/23 01/03/23 History Patient hx anesthesia problems: none Family hx anesthesia problems: none Results Review: All pre-operative results and documents have been reviewed as part of the pre-operative evaluation. [facility] Past Medical History Medical History Anxiety Depression HTN (hypertension) KATHLEEN (obstructive sleep apnea) Surgical History Surgical History (Updated 01/07/23 @ 07:48 by Dominic Cuevas MD) Hx of cystoscopy Social History Social History Smoking status: Never smoker Alcohol intake: never Substance use: never Substance use type: does not use Living arrangements: alone Spiritual care concerns: No Anes - Eval Final PreProcedure Day of Procedure 01/07/23 07:48 Patient weight: overweight Heart: regular rate and rhythm Lungs: clear to auscultation Airway: Mallampati scale class II Neurological: alert and oriented Last oral intake: >/= 8 hours ASA classification: III Emergent: no Anesthetic plan: proceed Anesthesia type and monitoring: general LMA and standard monitoring Results Review: All pre-operative results and documents have been reviewed as part of the pre-operative evaluation. Informed Consent: The patient's anesthetic plan and its attendant risks and benefits were discussed with the patient/family/POA. Questions were solicited and answers provided to the satisfaction of the patient/family/POA.
[2023-01-07] MEDS: LACTATED RINGERS 1,000 ML 30 ML IV CONT ×2 (07:59→09:44)
--- NOTE | 2023-01-07 08:08 | PM.IMHP ---
H&P: HPI History of Present Illness Date/Time: 01/07/23 08:08 Chief Complaint: right ureteral and right renal calculus Narrative: 42 year old male post eswl with residual fragments in proximal ureter and kidney. Will proceed with cystoscopy, left retrograde, left ureteroscopy with extraction, possible laser, stent exchange Review of Systems Review of Systems: All systems reviewed & are unremarkable except as noted in HPI and below PMFSH Past Medical History Medical History Anxiety Depression HTN (hypertension) KATHLEEN (obstructive sleep apnea) Surgical History Surgical History Hx of cystoscopy Social History Social History Smoking status: Never smoker Alcohol intake: never Substance use: never Substance use type: does not use Living arrangements: alone Spiritual care concerns: No Meds Home Medications and Allergies Home Medications Medication Instructions Recorded Confirmed Type bupropion HCl 200 mg tablet,12 hr 200 mg PO BID 08/26/21 01/03/23 History sustained-release duloxetine 60 mg capsule,delayed 60 mg PO DAILY 08/26/21 01/03/23 History release lamotrigine 200 mg tablet 200 mg PO BID 08/26/21 01/03/23 History lorazepam 0.5 mg tablet 0.5 mg PO TID PRN Anxiety 08/26/21 01/07/23 History propranolol 120 mg capsule,24 120 mg PO DAILY 08/26/21 01/03/23 History hr,extended release quetiapine 50 mg tablet 150 mg PO HS 08/26/21 01/03/23 History Adult One Daily Multivitamin See Rx Instructions .Route .COMPLEX 01/03/23 01/03/23 History Allergies Allergy/AdvReac Type Severity Reaction Status Date / Time Sulfa (Sulfonamide Allergy Unknown HIVES Verified 01/07/23 08:00 Antibiotics) Vital Signs Vital Signs - 24 hr 01/07/23 07:57 Temperature 36.3 C L Pulse Rate 71 Respiratory Rate 14 Blood Pressure 135/87 Pulse Oximetry 100 Oxygen Delivery Room Air Exam Const: General: cooperative, healthy appearing and no acute distress Eyes: General: appearance normal, both eyes and all related structures Neck: Neck: normal visual inspection Chest: Chest palpation & inspection: normal inspection of the chest Resp: Effort & Inspection: normal respiratory effort Cardio: Rate: regular rate Rhythm: regular rhythm GI: Inspection: normal to inspection Assessment and Plan Assessment and plan (1) Left ureteral calculus: Code(s): N20.1 - Calculus of ureter Status: Acute Assessment and Plan: cystoscopy, left ureteroscopy, left retrograde pyelogram, with possible laser stent exchange and stone extraction. (2) Left renal stone: Code(s): N20.0 - Calculus of kidney Status: Acute Assessment and Plan: See above
--- NOTE | 2023-01-07 08:16 | WPDHPUPDATE1 ---
History and Physical Update Update Date/Time: 01/07/23 08:16 History and Physical has been reviewed, including an updated exam of the patient. There are NO changes in the patient's condition. Risks, benefits, and alternatives have been discussed and questions answered. Patient agrees to proceed with procedure.
[2023-01-07] MEDS: ceFAZolin 2 GM/D5W 50 ML 2 GM/50 ML BAG IVPB (08:24)
[2023-01-07] MEDS: LIDOCAINE HCL 2% GEL UROJET 10 ML PKG MUCOUS MEM (08:38)
--- NOTE | 2023-01-07 09:07 | W.PM.PROC2 ---
Procedure Note - Detailed Date of Procedure 01/07/23 Pre-op Diagnosis Left ureteral and renal calculi Post-op Diagnosis Same Procedure Performed Cystoscopy, left retrograde pyelogram, left ureteroscopy with stone extraction, left ureteral stent exchange 4.8 Bermudian contour Surgeon Hector Sexton MD Anesthesia General Description of Procedure Patient is taken to the operative suite correctly identified. Once anesthesia was obtained was placed in dorsal lithotomy position and prepped and draped usual sterile fashion. Twenty-two Bermudian scope was inserted in the bladder. This stent was grasped and brought out to the meatus. I could not place a guidewire through it. We thus placed a rigid ureteral scope into the left ureteral orifice. The guidewire was inserted. Reinspection reveals a stone at the UVJ area. Using escape basket this was retrieved. Two other stones were found in the mid ureter. A 4 stone was found in the proximal ureter. A flexible ureteral scope was inserted all the way into the kidney. Pyelogram was confirmed performed to confirm placement the stent. He was noted to have a small fragment in the lower pole calyx but due to its location and the lip of the calyx the scope could not rotate to retrieve it. At this point time the procedure was terminated. 4.8 Bermudian contour stent was placed with the proximal end coiled in the renal pelvis and the distal in the bladder. Bladder was drained. 2% viscous lidocaine was inserted into the urethra patient is taken recovery stable condition. He will follow-up in a week's time for stent removal. This completes dictation. Please send a copy of this op note to my office. Estimated Blood Loss 0 Drains Yes Packing No Pathology Yes Complications No immediate complications Condition Stable Disposition PACU
[2023-01-07] MEDS: ONDANSETRON INJ 4 MG/2 ML VIAL IV PUSH (09:37)
[2023-01-07] MEDS: diphenhydrAMINE HCl INJ 50 MG/ML VIAL 25 MG IV PUSH (09:57)
[2023-01-07] MEDS: SCOPOLAMINE 1.5 MG PATCH TRANSDERM (10:38)
== END 2023-01-07 11:10 | disposition home or self-care (01) ==
PROVIDERS: Visit Provider Urology
PROC: (CPT 52352; principal; 2023-01-07 08:30)
DX: N20.2 Calculus of kidney with calculus of ureter (principal); F32.A Depression, unspecified; F41.9 Anxiety disorder, unspecified; I10 Essential (primary) hypertension; G47.33 Obstructive sleep apnea (adult) (pediatric)
CPT/HCPCS: 52332; 52352; 74420; 82365; 88300; A9270; C1769; C1894; C2617; J0690; J1100; J1200; J2250; J2405; J2704; J3010; J7120; Q9966

== ENCOUNTER 2023-03-02 10:56 | Outpatient (CLI) | payer BC, SELFPAY ==
--- NOTE | ~2023-03-02 | XR_ITS ---
EXAMINATION: XR abdomen/kub 1V INDICATION: Calcium kidney stone TECHNIQUE: Supine views of the abdomen were obtained on 2 radiographs. COMPARISON: 01/03/2023 FINDINGS: The left internal ureteral stent has been removed. No definite urolithiasis is identified. The bowel gas pattern is normal. The visualized osseous structures are unremarkable. IMPRESSION: 1. No definite urolithiasis identified. Reviewed, dictated and finalized at location B. RNS CLERK
--- NOTE | ~2023-03-02 | CT_ITS ---
Non-contrast CT scan of the Abdomen and Pelvis Clinical indication: Renal stone Technique: 2.5 mm axial scans were obtained through the abdomen and pelvis without intravenous or or al contrast. Dose reduction technique was used on this scan by utilizing automated exposure control a nd iterative reconstruction technique. The dose-length product (DLP) was 544.10 mGy-cm. COMPARISON: 01/03/2023 Findings: Images through the lung bases reveal no abnormalities. 4 mm proximal left ureteral stone is present, with mild left hydronephrosis. Left ureteral stent has been removed since prior exam. No other stones identified in either side. No right hydronephrosis. The liver, spleen, pancreas, gallbladder, and adrenals appear normal. There is no aortic aneurysm. There is no evidence of bowel obstruction. Images through the pelvis were performed. There is no evidence of ascites or lymphadenopathy. Urinary bladder unremarkable. No pelvic mass seen. Impression: 4 mm proximal left ureteral stone with mild left hydronephrosis. Interval removal of left ureteral stent. Reviewed, dictated and finalized at [facility]. T WRITER Impression: 4 mm proximal left ureteral stone with mild left hydronephrosis. Interval removal of left ureteral stent.
== END 2023-03-02 10:57 ==
PROVIDERS: PCP Urology; Visit Provider Urology
DX: N20.1 Calculus of ureter (principal); N13.30 Unspecified hydronephrosis
CPT/HCPCS: 74018; 74176